=== PATIENT | female | born 1950 | race Caucasian/White ===

== ENCOUNTER 2018-06-16 16:30 | Emergency (ER) | payer OTHER ==
--- NOTE | 2018-06-16 16:51 | Emergency Department Record ---
History of Present Illness - General Chief Complaint: Ankle/Foot Injury Stated Complaint: EVENT [facility] - ANKLE INJURY Time Seen by Provider: 06/16/18 16:42 Source: Patient Mode of Arrival: Ambulatory Limitations: No limitations - History of Present Illness Initial Comments: The patient is here due to possibly injuring her R 4th toe an hour ago. She was walking out of the hospital and an automatic door bumped her toe. It was initially mildly painful but now is back to normal. MD Complaint: Other Onset/Timin -: Minutes(s) Type of Injury: Other Place: Other Severity: Mild Severity scale (1-10): 4 Improves With: Immobilization, Rest Worsens With: Weight bearing Context: Other Associated Symptoms: Ambulatory - Related Data Home Medications Medication Instructions Recorded Confirmed Last Taken No Home Med [NO HOME MEDS] 06/16/18 06/16/18 Unknown Allergies Allergy/AdvReac Type Severity Reaction Status Date / Time NSAIDS (Non-Steroidal Allergy PT UNSURE Verified 06/16/18 16:35 Anti-Inflamma OF REACTION erythromycin base AdvReac NAUSEA AND Verified 06/16/18 16:35 VOMITING Travel Screening - Travel/Exposure Within Last 30 Days Have you traveled within the last 30 days?: Yes Location Detail:: Ill. - Travel/Exposure Within Last Year Have you traveled outside the [place] in the last year?: No - Additonal Travel Details Have you been exposed to anyone with a communicable illness?: No - Travel Symptoms Symptom Screening: None Review of Systems Constitutional: Denies: Chills, Fever Past Medical History - SOCIAL HISTORY Smoking Status: Never smoker Alcohol Use: Occasional Drug Use: None - RESPIRATORY Hx Respiratory Disorders: No - CARDIOVASCULAR Hx Cardio Disorders: No - NEURO Hx Neuro Disorders: No - GI Hx GI Disorders: No - Hx Genitourinary Disorders: No - ENDOCRINE Hx Endocrine Disorders: No - MUSCULOSKELETAL Hx Musculoskeletal Disorders: No - PSYCH Hx Psych Problems: No - HEMATOLOGY/ONCOLOGY Hx Hematology/Oncology Disorders: No Family Medical History Any Significant Family History?: Yes Hx Heart Disease: Mother Physical Exam - General General Appearance: Alert, Oriented x3, Cooperative, No acute distress - Head Head exam: Atraumatic, Normocephalic - Eye Eye exam: Normal appearance, PERRL - Extremities Extremities exam: Normal inspection (The R 4th toes appears normal with no swelling, tenderness or abrasions present.), Full ROM, Normal capillary refill. negative: Tenderness Course Vital Signs 06/16/18 16:36 Temperature 98.1 F Pulse Rate 72 Respiratory 20 Rate Blood Pressure 177/86 Pulse Ox 96 - Reevaluation(s) Reevaluation #1: I explained to the patient that her toe appears normal now. She is declining and xray and will return for any problems. 06/16/18 16:55 Disposition Disposition: Discharge Clinical Impression: Toe contusion Qualifiers: Encounter type: initial encounter Toe: unspecified toe Damage to nail status: without damage Qualified Code(s): S90.129A - Contusion of unspecified lesser toe (s) without damage to nail, initial encounter Disposition: Home, Self-Care Condition: (2) Stable Instructions: Crush Injury (ED) Additional Instructions: Please return to the ER for any problems. Forms: Patient Portal Access Time of Disposition: 16:51 Quality - Quality Measures Quality Measures: N/A - Blood Pressure Screening View Details: Yes Does Patient Have Any of the Following: No Blood Pressure Classification: Pre-Hypertensive BP Reading Systolic Measurement: 177 Diastolic Measurement: 86 Screening for High Blood Pressure: < Pre-Hypertensive BP, F/U Documented > [ [id number]] Pre-Hypertensive Follow-up Interventions: Referral to alternative/primary care provider.
== END 2018-06-16 16:58 | disposition home or self-care (01) ==
LOC: ER 16:30
DX: S90.129A Contusion of unspecified lesser toe(s) without damage to nail, initial encounter (principal); W22.8XXA Striking against or struck by other objects, initial encounter; Y92.232 Corridor of hospital as the place of occurrence of the external cause
CPT/HCPCS: 99282